=== PATIENT | female | born 1950 | race Caucasian/White ===

== ENCOUNTER 2020-11-05 22:18 | Emergency (ER) | payer MEDICARE ==
[~2020-11-05 22:18] MED LIST: FEOSOL325 MG PO; FERROUS SULFAT325 M2 PO; FLEXERIL 10 MG10 MG PO; IPRAT-ALBUT 0.5-3 ML NEB; LEVAQUIN500 MG PO; LEVAQUIN750 MG PO; LYRICA100 MG PO; MEDROL4 MG PO; PAXIL40 MG PO; PERCOCET 10-321 EACH PO; SPIRIVA RESPIMAT4 GM INH; SYMBICORT 160-1 INHA INH
[2020-11-05 23:41] LABS: HEMOGLOBIN 11.2 gm/dl (12.3-15.3); RED BLOOD COUNT 4.05 M/UL (4.00-5.10); WHITE BLOOD COUNT 11.8 K/UL (4.5-11.0)
[2020-11-06 00:04] LABS: BUN/CREATININE RATIO 14 (0-10)
[2020-11-06] MEDS ORDERED: DOXYCYCLINE HY100 MG PO (01:12)
[2020-11-06] MEDS ORDERED: Home Oxygen (01:12)
== END 2020-11-06 01:25 | disposition home or self-care (01) ==
LOC: ER1 22:18
PROVIDERS: Family Medicine
DX: S30.861A Insect bite (nonvenomous) of abdominal wall, initial encounter (principal); J43.9 Emphysema, unspecified; R09.02 Hypoxemia; F17.200 Nicotine dependence, unspecified, uncomplicated; W57.XXXA Bitten or stung by nonvenomous insect and other nonvenomous arthropods, initial encounter
CPT/HCPCS: 71045; 80053; 82550; 82553; 83605; 84484; 85025; 85610; 87040; 94664; 99285